=== PATIENT | female | born 1930 | race Caucasian/White ===

== ENCOUNTER 2018-10-30 14:12 | Observation (INO) | payer MEDICARE, OTHER ==
[~2018-10-30] VITALS: Ht 162.6 cm; Wt 67.3 kg
[~2018-10-30 14:12] MED LIST: AMBIEN CR12.5 MG; LASIX40 MG; LOPRESSOR50 MG PO; ZOLOFT25 MG
[2018-10-30] MEDS ORDERED: METHYLPREDNISOLONE SOD SUCC 125 MG/2ML VIAL IV STA (14:36)
[2018-10-30] MEDS ORDERED: SODIUM CHLORIDE 0.9% 500ML 500 ML IV STA (14:36)
[2018-10-30 14:55] LABS: BASOPHILS % 0.5 % (0.0-1.0); EOSINOPHILS # (AUTO) 0.1 (0.0-0.4); EOSINOPHILS % 1.3 % (0.0-6.0); HEMATOCRIT 40.6 % (34.2-44.1); HEMOGLOBIN 12.7 g/dL (12.0-16.0); LYMPHOCYTES % 12.6 % (18.0-39.1); MEAN CORPUSCULAR HEMOGLOBIN 32.5 pg (28-32); MEAN CORPUSCULAR HGB CONC 31.3 g/dL (31-35); MEAN CORPUSCULAR VOLUME 103.8 fL (81-99); MONOCYTES # (AUTO) 0.5 (0.2-0.8); MONOCYTES % 6.8 % (4.4-11.3); NEUTROPHILS # (AUTO) 6.2 (2.1-6.9); NEUTROPHILS % 78.4 % (38.7-80.0); PLATELET COUNT 266 x10e3/uL (140-360); RED BLOOD COUNT 3.91 x10e6/uL (3.6-5.1); RED CELL DISTRIBUTION WIDTH 12.5 % (11.7-14.4)
[2018-10-30 15:09] LABS: INR 0.92; PROTHROMBIN TIME 13.2 seconds (11.9-14.5)
[2018-10-30 15:10] LABS: PARTIAL THROMBOPLASTIN TIME 29.8 seconds (23.8-35.5)
[2018-10-30 15:19] LABS: ALANINE AMINOTRANSFERASE 9 IU/L (0-55); ALBUMIN/GLOBULIN RATIO 0.8 (0.8-2.0); ALKALINE PHOSPHATASE 63 IU/L (40-150); ANION GAP 12.2 mmol/L (8-16); BLOOD UREA NITROGEN 13 mg/dL (7-26); BUN/CREATININE RATIO 19 (6-25); CALCIUM 9.1 mg/dL (8.4-10.2); CARBON DIOXIDE 31 mmol/L (22-29); CHLORIDE 101 mmol/L (98-107); CREATINE KINASE 38 IU/L (29-168); CREATININE, SERUM 0.67 mg/dL (0.57-1.11); EST GLOMERULAR FILTRATION RATE > 60 ML/MIN (60-); GLUCOSE 124 mg/dL (74-118); MAGNESIUM 2.2 MG/DL (1.3-2.1); POTASSIUM 4.2 mmol/L (3.5-5.1); SODIUM 140 mmol/L (136-145)
[2018-10-30 15:31] LABS: BILIRUBIN,URINE NEGATIVE (NEGATIVE); CLARITY,URINE CLEAR (CLEAR); COLOR,URINE YELLOW (YELLOW); KETONES,URINE NEGATIVE (NEGATIVE); LEUKOCYTE ESTERASE ,URINE NEGATIVE (NEGATIVE); NITRITE,URINE NEGATIVE (NEGATIVE); PROTEIN,URINE DIPSTICK NEGATIVE (NEGATIVE); URINE UROBILINOGEN 0.2 mg/dL (0.2 - 1)
[2018-10-30 15:43] LABS: BACTERIA,URINE FEW /HPF; EPITHELIAL CELLS,URINE FEW /LPF; MUCUS,URINE FEW (RARE); RBC,URINE 0-5 /HPF (0-5); WBC,URINE (MAN) 0-5 /HPF (0-5)
[2018-10-30] MEDS ORDERED: ALBUTEROL/IPRATROPIUM 3 ML NEB NEB ONE (15:45)
[2018-10-30] MEDS ORDERED: DICYCLOMINE HCL 20 MG/2 ML VIAL IM ONE (16:45)
--- NOTE | 2018-10-30 17:31 | NUR ---
PT STATES SHE'S BREATHING BETTER POST BREATHING TREATMENT
--- NOTE | 2018-10-30 18:05 | Diagnostic Imaging Report ---
Examination: Single AP view of the chest. COMPARISON: None. INDICATION: Shortness of breath for 2 months IMPRESSION: 1. Lines and Tubes: None 2. Lungs are well-inflated. Linear opacities in the right lower lung likely reflect subsegmental atelectasis or scarring. No definite consolidation or effusion. 3. Cardiomediastinal silhouette is unremarkable. Mild central venous congestion. 4. No acute bony abnormalities. Signed by: Dr. Nacho Davies M.D. on 10/30/2018 6:02 PM
--- NOTE | 2018-10-30 18:27 | Diagnostic Imaging Report ---
Exam: Head CT without contrast Indication: Subacute diplopia Comparison: None Technique: Axial images were obtained from the skull base to the vertex. Coronal and sagittal images reconstructed from the axial data. Dose modulation, iterative reconstruction, and/or weight based adjustment of the mA/kV was utilized to reduce the radiation dose to as low as reasonably achievable. Intravenous contrast: None Findings: Suboptimal evaluation due to motion artifacts, limits evaluation particularly of the skull base and posterior fossa. Scalp/skull: No abnormalities. Extra-axial spaces: No masses. No fluid collections. Brain sulci: Mildly prominent. Ventricles: Mild compensatory dilatation. No hydrocephalus. Parenchyma: Nonspecific few, scattered supratentorial white matter hypodensity are likely related to small vessel ischemic changes. No masses, hemorrhage, acute or chronic cortical vascular insults. Sellar/suprasellar region: No abnormalities. Craniocervical junction: Patent foramen magnum. No Chiari one malformation. Moderate degenerative changes at the anterior atlantodental joint3. Incidental findings: Atherosclerotic calcifications in the carotid siphons . Nonspecific debris within the external auditory canals. Mucous retention cysts within the left maxillary sinus alveolar recess. 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 Impression: 1. No acute abnormalities. 2. Mild generalized cerebral volume loss and mild supratentorial white matter microvascular ischemic changes. Dictation delayed given IT issues. Specifically, exam performed at approximately 5:00 PM but images were not available for review intact until shortly after 6:00 PM. A preliminary report was provided by Dr. Ac on 10/30/2018 6:26 PM I have reviewed the images and agree with findings in the preliminary report. Signed by: Dr. Lalita Blank M.D. on 10/30/2018 7:49 PM
--- NOTE | 2018-10-30 18:28 | NUR ---
PT RESTING COMFORTABLY IN BED DENIES ANY COMPLAINTS AT THIS TIME
[2018-10-30] MEDS ORDERED: SODIUM CHLORIDE FLUSH 10 ML SYR INJ PRN (18:45)
[2018-10-30] MEDS ORDERED: ONDANSETRON HCL INJ 2MG/ML 2ML 2 MG/ML VIAL IV PRN (18:45)
[2018-10-30] MEDS: CEFTRIAXONE SOD 1 GM/NS 50 ML 50 ML IV SCH (19:00)
--- OUTSIDE RECORDS SUMMARY | 2018-10-30 19:37 | XMS REPORT ---
Author Author [facility] Address Unknown Phone Unavailable Care Team Providers Care Cafe Assistant Name Role Phone Elizabeth HARDIN Unavailable Unavailable Problems This patient has no known problems. Allergies, Adverse Reactions, Alerts This patient has no known allergies or adverse reactions. Medications This patient has no known medications. Results Test Description Test Time Test Comments Text Results Atomic Results Result Comments CHEST SINGLE (PORTABLE) 2018-10-30 18:01:00 [place] [id number] Patient Name: SOLA ELIZONDO MR #: [id number] : 1930 Age/Sex: 88/F Req #: [id number] Adm Physician: Ordered by: JOHN HARRISON RESIDENTIAL DOOR INSTALLER Report #: [id number] Location: ER Room/Bed: Procedure: [id number] DX/CHEST SINGLE (PORTABLE) Exam Date: 10/30/18 Exam Time: 1555 REPORT STATUS: Signed Examination: Single AP view of the chest. COMPAR BRAD: None. INDICATION: Shortness of breath for 2 months IMPRESSION: 1. Lines and Tubes: None 2. Lungs are well-inflated. Linear opacities in the right lower lung likely reflect subsegmental atelectasis or scarring. No definite consolidation or effusion. 3. Cardiomediastinal silhouette is unremarkable. Mild central venous congestion. 4. No acute bony abnormalities. Signed by: Dr. Fredis Davies M.D. on 10/30/2018 6:02 PM Dictated By: FREDIS DAVIES MD 01 Transcribed By: BEVERLEY on 1801 COPY TO: JOHN HARRISON NP
[2018-10-30] MEDS: ALBUTEROL/IPRATROPIUM 3 ML NEB NEB SCH ×2 (21:18→23:34)
[2018-10-30 21:39] VITALS: BP 174/76
--- NOTE | 2018-10-30 21:42 | NUR ---
PT ARRIVED BY STRETCHER TO ROOM 102. PT IS AAOX3, RR EVEN AND NON-LABORED, O2 BY NC AT 2L. NO S/SX OF DISTRESS NOTED. PT ASSISTED TO AMBULATE TO HOSPITAL BED WITH WALKER. ORIENTED PT TO HOSPITAL ROOM, CALL LIGHT, PHONE, BED CONTROLS AND LIGHTS. LEFT PT LAYING SEMI FOWLERS IN BED, BED IN LOW LOCKED POSITION, SIDE RAILS UPX2, CALL LIGHT AND PHONE WITHIN REACH. FAMILY AT BEDSIDE.
[2018-10-30 22:00] VITALS: BP 174/76
--- NOTE | 2018-10-30 22:00 | NUR ---
PT SON, CEE MIKHAIL, TO BRING [facility] PAPERWORK AND PT'S HOME MEDICATIONS FOR CLARIFICATION
--- NOTE | 2018-10-30 22:41 | NUR ---
PROVIDED PT WITH SANDWICH AT THIS TIME.
[2018-10-30] MEDS ORDERED: METOPROLOL TART50 MG PO (23:11)
[2018-10-30] MEDS ORDERED: XANAX0.25 MG PO (23:11)
[2018-10-30] MEDS ORDERED: [UNRECOGNIZED DRUG - REMARK] (23:11)
--- NOTE | 2018-10-30 23:35 | NUR ---
BLOOD DRAWN AND DELIVERED TO LAB FOR CARDIAC ENZYMES.
[2018-10-31] VITALS (8 sets, daily range): BP systolic 119–152; BP diastolic 58–70
[2018-10-31] MEDS: ALBUTEROL/IPRATROPIUM 3 ML NEB NEB SCH ×6 (03:40→22:36)
[2018-10-31 04:02] LABS: CREATINE KINASE MB 1.4 ng/mL (0-5.0)
[2018-10-31 05:50] LABS: BASOPHILS % 0.2 % (0.0-1.0); HEMATOCRIT 36.6 % (34.2-44.1); HEMOGLOBIN 11.7 g/dL (12.0-16.0); LYMPHOCYTES # (AUTO) 0.2 (1.0-3.2); LYMPHOCYTES % 4.4 % (18.0-39.1); MEAN CORPUSCULAR HEMOGLOBIN 32.7 pg (28-32); MEAN CORPUSCULAR VOLUME 102.2 fL (81-99); MONOCYTES # (AUTO) 0.1 (0.2-0.8); NEUTROPHILS # (AUTO) 5.1 (2.1-6.9); PLATELET COUNT 242 x10e3/uL (140-360); RED BLOOD COUNT 3.58 x10e6/uL (3.6-5.1); RED CELL DISTRIBUTION WIDTH 12.4 % (11.7-14.4)
[2018-10-31] MEDS: CEFTRIAXONE SOD 1 GM/NS 50 ML 50 ML IV SCH ×2 (05:54→18:35)
[2018-10-31 06:11] LABS: ANION GAP 13.1 mmol/L (8-16); BLOOD UREA NITROGEN 14 mg/dL (7-26); BUN/CREATININE RATIO 22 (6-25); CALCIUM 9.2 mg/dL (8.4-10.2); CARBON DIOXIDE 30 mmol/L (22-29); CHLORIDE 103 mmol/L (98-107); CREATININE, SERUM 0.64 mg/dL (0.57-1.11); EST GLOMERULAR FILTRATION RATE > 60 ML/MIN (60-); GLUCOSE 204 mg/dL (74-118); POTASSIUM 4.1 mmol/L (3.5-5.1); SODIUM 142 mmol/L (136-145)
[2018-10-31 06:47] LABS: CREATINE KINASE MB 1.2 ng/mL (0-5.0)
[2018-10-31 08:06] LABS: LYMPHOCYTES % (MANUAL) 4 % (19-48); NEUTROPHILS % (MANUAL) 96 % (40-74); PLATELET ESTIMATE ADEQUATE; PLATELET MORPHOLOGY COMMENT NORMAL; RBC MORPHOLOGY COMMENT ABNORMAL
--- NOTE | 2018-10-31 12:02 | NUR ---
JOSHUA INTO SEE PT, DISCUSSED POC
[2018-10-31] MEDS ORDERED: LASIX20 MG PO (12:18)
[2018-10-31] MEDS ORDERED: POTASSIUM CHLO10 ME1 PO (12:18)
--- NOTE | 2018-10-31 12:35 | NUR ---
MD STOKES INTO SEE PT, DISCUSSED POC, PT WHEELED OFF UNIT VIA BED FOR CT OF CHEST, NO CHANGE IN CONDITION
[2018-10-31] MEDS ORDERED: ALPRAZOLAM 0.25 MG TAB PO PRN (12:45)
--- NOTE | 2018-10-31 13:14 | NUR ---
SOCIAL WORK INITIAL ASSESSMENT Tracer Clerk to bedside to discuss plan of care with patient/family. CM/SW role and care transitions discussed. Anticipated discharge plan discussed along with duration of care. CM/SW discussed patients right to make decisions in care. CM/SW work hours given. Patient lives: IN OWN HOUSE BY SELF Admit/Transfer: VIA ED FROM HOME POA/Emergency contact: LALITA MCINTOSH [phone] Current/Previous Home Health: NONE PCP/Follow-up Care: JUNIOR Current/Previous DME: [facility]AR Other Services: NONE Employment Status: RETIRED Areas of Concerns: NONE Referral Needs: NONE Education Needs: NONE IMM/MONTIEL given and signed (if applicable): MONTIEL Goal for discharge: RETURN HOME INDEPENDENTLY CM/SW left business card at the bedside with contact information. Name and number was also written on the patients whiteboard. Patient verbalized understanding of discussion. CM will follow-up with ongoing discharge and transition of care needs.
[2018-10-31 14:19] LABS: CREATINE KINASE MB 1.6 ng/mL (0-5.0)
--- NOTE | 2018-10-31 14:33 | Consultation ---
DATE OF CONSULTATION PULMONARY CONSULTATION REASON FOR CONSULTATION: Shortness of breath and wheezing. HPI: Mr. Salazar is an 88-year-old female. She is a regular patient of Dr. No. Patient reports that she is having shortness of breath for last few years off and on with wheezing. She was prescribed Advair inhaler, but she was unable to afford it. She uses nebulizer, however, somehow, she was unable to fill the prescription and she is not using that at all. Currently she is on nebulizer. She reports that she feels better with nebulizer treatment. She is a lifelong nonsmoker. Does not drink. She is a , lives by herself and now at some point she is not able to perform daily activities because of her wheezing and shortness of breath. REVIEW OF SYSTEMS GENERAL: Denies any fever or chills. HEAD: Denies any head trauma. ENT: Denies any earache. CVS: Denies any chest pain. RESPIRATORY: Wheezing, shortness of breath. PAST MEDICAL HISTORY: Patient has history of hypertension. PAST SURGICAL HISTORY: Aortic dissection repair in 2010, cholecystectomy, knee replacement, and back surgery. PHYSICAL EXAMINATION VITALS: Temperature 97.2, pulse of 84, blood pressure 128/58, respiratory rate of 18. O2 sat 98% on 2 liters. HEENT: Head atraumatic, normocephalic. NECK: Supple. CHEST: Markedly reduced air entry bilaterally. HEART: S1 and S2 audible. ABDOMEN: Soft, nontender and nondistended. EXTREMITIES: No clubbing, cyanosis or edema. NEUROLOGIC: Awake and alert. LABORATORY DATA: White count of 5.4, hemoglobin 11.7, platelets 242. Chemistry: Sodium 142, potassium 4.1, chloride 103. BUN 14, creatinine 0.64. INR is 0.92. IMAGING STUDIES: Chest x-ray, I have reviewed the images. Lungs are well inflated. I do not see any indefinite abnormality on the chest x-ray. ASSESSMENT: Ms. Salazar is an 88-year-old female who has wheezing, cough, shortness of breath, a lifelong nonsmoker. Chest x-ray not suggestive of any pneumonia. Patient has kyphosis. I think she probably has underlying asthma as she has a reported response to inhalers in the past and also responding to inhalers now. It is possible that asthma is getting worse, is causing more problem because she has kyphosis which gives a mechanical restriction to her lung. PLAN 1. I will do a CT chest without contrast. Add Pulmicort nebs. Continue the patient on DuoNeb. I will also had IV Solu-Medrol low-dose. 2. We will order bedside PFT as well. 3. Discuss with patient's daughter at bedside in detail. Job#: [id number] SAPNA
[2018-10-31] MEDS: METHYLPREDNISOLONE SOD SUCC 40 MG/ML VIAL 1ML IV SCH ×2 (14:58→21:28)
--- NOTE | 2018-10-31 16:46 | Diagnostic Imaging Report ---
CT CHEST WITHOUT CONTRAST HISTORY: Shortness of breath COMPARISON: Chest radiograph October 30, 2018. CTA's of the chest December 21, 2010 and December 13, 2010. TECHNIQUE: CT scan of the chest WITHOUT intravenous contrast, using standard protocol. The chest was scanned utilizing a multidetector helical scanner from the apex to the level of the adrenal glands. Coronal and sagittal reformats are provided. IV CONTRAST: None, which limits evaluation of the vascular structures, mediastinum and soft tissues. RADIATION DOSE: Total DLP: 451.4 mGy*cm Dose modulation, iterative reconstruction, and/or weight based adjustment of the mA/kV was utilized to reduce the radiation dose to as low as reasonably achievable. COMPLICATIONS: None FINDINGS: Lines/tubes: None. Lungs and Airways: No consolidative pneumonia. Bilateral mild atelectasis versus scarring. A 1.4 cm thin-walled right lower lobe cyst. Pleura: No effusion or pneumothorax. Heart and mediastinum: The thyroid gland is normal. The heart and pericardium are within normal limits. Abdomen: Limited nonenhanced views of the upper abdomen. Lymph nodes: No pathologically enlarged lymph node. Vessels: Interval postsurgical changes, most notably the aortic root/ascending aorta. Diffuse scattered atherosclerotic vascular calcifications. There is persistent asymmetric wall thickening versus thrombus at the aortic arch and descending aorta, but it appears less prominent versus the comparisons. Bones: Diffusely decreased mineralization of the osseous structures limits bone detail. Multiple median sternotomy wires. The focal degenerative changes. Soft tissues: Otherwise, unremarkable. IMPRESSION: 1. No pneumonia or pulmonary edema. 2. Postsurgical changes of the thoracic aorta with slightly decreased asymmetric thickening versus thrombus involving the arch and descending aorta. 3. Diffuse osseous demineralization. Signed by: Dr. Carloz Lazaro D.O., M.M.M. on 10/31/2018 4:43 PM
--- NOTE | 2018-10-31 17:28 | NUR ---
TELEPHONED MD HUERTA'S OFFICE PER PT REQUEST TO RESTART EYE DROPS THAT PT "FORGOT TO ADD TO LIST", PT EYES ARE RED AND "ACHY", PT STATES SHE TAKES VISINE AND SYSTANE EYE DROPS NEEDED AT HOME, AWAITING CALL BACK
[2018-10-31] MEDS ORDERED: SODIUM CHLORIDE 0.9% 250ML 250 ML ONE (18:31)
--- NOTE | 2018-10-31 19:01 | NUR ---
WALKING ROUNDS PERFORMED, RECEIVED PT LAYING SEMI FOWLERS IN BED, AAOX3, RR EVEN AND NON-LABORED, O2 BY NC AT 2L. NO S/SX OF DISTRESS NOTED. LEFT PT LAYING SEMI FOWLERS IN BED, BED IN LOW LOCKED POSITION, SIDE RAILS UPX2, CALL LIGHT AND PHONE WITHIN REACH. FAMILY AT BEDSIDE.
[2018-10-31] MEDS ORDERED: VISINE TEARS DR15 ML OU (19:12)
[2018-10-31] MEDS ORDERED: SYSTANE GEL EYE10 ML OU (19:12)
[2018-10-31] MEDS: BUDESONIDE 0.5MG/2 ML NEB INH SCH (20:00)
[2018-10-31] MEDS: METOPROLOL TARTRATE 50 MG TAB PO SCH (21:28)
[2018-10-31] MEDS: TETRAHYDROZOLINE HCL(OPTH) 30 ML BOTTLE OP PRN (21:28)
[2018-11-01] VITALS (9 sets, daily range): BP systolic 139–181; BP diastolic 73–93
[2018-11-01] MEDS: ALBUTEROL/IPRATROPIUM 3 ML NEB NEB SCH ×7 (03:00→23:12)
[2018-11-01] MEDS: CEFTRIAXONE SOD 1 GM/NS 50 ML 50 ML IV SCH ×2 (05:48→17:56)
[2018-11-01] MEDS: METHYLPREDNISOLONE SOD SUCC 40 MG/ML VIAL 1ML IV SCH ×2 (05:48→20:42)
[2018-11-01] MEDS: BUDESONIDE 0.5MG/2 ML NEB INH SCH (07:46)
[2018-11-01] MEDS: FUROSEMIDE 20 MG TAB PO SCH (09:05)
[2018-11-01] MEDS: METOPROLOL TARTRATE 50 MG TAB PO SCH ×2 (09:05→20:42)
[2018-11-01] MEDS: POTASSIUM CHLORIDE 10MEQ EA PO SCH (09:05)
--- NOTE | 2018-11-01 12:09 | NUR ---
JOSHUA INTO SEE PT, DISCUSSED POC
[2018-11-01] MEDS ORDERED: ALBUTEROL SULFATE HFA 8GM INHALATION AEROSOL INH PRN (12:30)
[2018-11-01] MEDS ORDERED: ACETAMINOPHEN 325 MG TAB ONE (12:56)
[2018-11-01] MEDS: ACETAMINOPHEN 325 MG TAB PO PRN (12:59)
--- NOTE | 2018-11-01 13:20 | NUR ---
MD STOKES INTO SEE PT, DISCUSSED POC
--- NOTE | 2018-11-01 16:44 | History and Physical ---
This is for Dr. Rodriguez. Ms. Salazar is a pleasant but complex 88-year-old woman who was sent from Dr. No's office on the afternoon of the with a complaint of shortness of breath and low oxygen saturation. HISTORY OF PRESENT ILLNESS: The patient reports she visited with Dr. No for dyspnea and checked saturation and found to be very low, and she was directed to the emergency room. PAST MEDICAL HISTORY: Significant also for lung disease and dyspnea. She has hypertension. PAST SURGICAL HISTORY: Multiple surgical procedures. She had repair of aortic dissection in 2010. She had cholecystectomy in 2010. She had previous total knee replacement and lumbar spine surgery. Cholecystectomy was in 2010. CURRENT HOME MEDICATIONS: Include Xanax 0.25 mg, furosemide 20 mg daily, metoprolol tartrate 50 mg daily in the morning and 75 mg in the evening, potassium 10 mEq daily, and eye drops. PERSONAL AND SOCIAL HISTORY: She does not smoke. FAMILY HISTORY: Positive for diabetes. PHYSICAL EXAMINATION GENERAL: At this time shows elderly white woman who is alert, has a patch on the right eye. VITAL SIGNS: Blood pressure 180/90, pulse 80 and regular. 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 Pupils equal and responsive. NECK: No jugular venous distention. THORAX: Has healed midline sternotomy and a right subclavian incision healed. CARDIAC: Heart sounds S1, S2 are equal but there is a 2/6 systolic murmur. LUNGS: Show distant breath sounds. ABDOMEN: Protuberant. EXTREMITIES: No cyanosis, clubbing or edema. CURRENT LABORATORY STUDIES: Show white count 5.4, hemoglobin 11.7. BUN 14, creatinine 0.6. Serum bicarb elevated at 30. Coags are normal. Troponins are normal x3. BNP is 275. Glucose 124. Chest x-ray suggests linear opacities in the right lung, likely atelectasis or scarring. Chest x-ray report fails to mention the sternotomy wires and the right subclavian surgical clips. ASSESSMENT 1. Exacerbation of chronic obstructive pulmonary disease. 2. Hypertension. 3. Hypoxia. 4. Aortic murmur. 5. Previous repair of dissection of the aorta. PLAN: We will await pulmonary consultation and patient is about to get CAT scan of the chest. We will request echocardiogram as well. Further management based on clinical course. Job#: [id number] MYKE cc:DR. GTZ
[2018-11-01] MEDS ORDERED: METHYLPREDNISOLONE SOD SUCC 40 MG/ML VIAL 1ML IV SCH (17:00)
[2018-11-01] MEDS: LOSARTAN POTASSIUM 25 MG TAB PO SCH (17:30)
--- NOTE | 2018-11-01 19:07 | NUR ---
WALKING ROUNDS PERFORMED, RECEIVED PT LAYING SEMI FOWLERS IN BED, AAOX3, RR EVEN AND NON-LABORED, ON RA. NO S/SX OF DISTRESS NOTED. LEFT PT LAYING SEMI FOWLERS IN BED, BED IN LOW LOCKED POSITION, SIDE RAILS UPX2, CALL LIGHT AND PHONE WITHIN REACH. FAMILY AT BEDSIDE.
[2018-11-01] MEDS: BUDESONIDE/FORMOTEROL 160/4.5MCG INHALER INH SCH (19:37)
[2018-11-01] MEDS: TETRAHYDROZOLINE HCL(OPTH) 30 ML BOTTLE OP PRN (20:42)
--- NOTE | 2018-11-01 22:00 | NUR ---
APPLIED NOAM ALTERNATING PRESSURE PUMP TO PT'S BED.
[2018-11-02] VITALS (8 sets, daily range): BP systolic 116–155; BP diastolic 57–86
[2018-11-02] MEDS: ALBUTEROL/IPRATROPIUM 3 ML NEB NEB SCH ×6 (03:10→23:19)
[2018-11-02] MEDS: ACETAMINOPHEN 325 MG TAB PO PRN ×2 (03:55→23:22)
[2018-11-02] MEDS: CEFTRIAXONE SOD 1 GM/NS 50 ML 50 ML IV SCH ×2 (05:45→17:50)
--- NOTE | 2018-11-02 07:09 | NUR ---
Received patient and walking rounds complete. Patient resting in bed, no signs of distress at this time. Bed in lowest position, wheels locked, side rails up x2, call light in reach. Will continue to monitor.
[2018-11-02] MEDS: BUDESONIDE/FORMOTEROL 160/4.5MCG INHALER INH SCH ×2 (07:30→20:12)
[2018-11-02] MEDS: METHYLPREDNISOLONE SOD SUCC 40 MG/ML VIAL 1ML IV SCH ×2 (08:09→21:28)
[2018-11-02] MEDS: METOPROLOL TARTRATE 50 MG TAB PO SCH ×2 (08:09→21:28)
[2018-11-02] MEDS: FUROSEMIDE 20 MG TAB PO SCH (08:09)
[2018-11-02] MEDS: POTASSIUM CHLORIDE 10MEQ EA PO SCH (08:09)
[2018-11-02] MEDS: LOSARTAN POTASSIUM 25 MG TAB PO SCH (08:09)
--- NOTE | 2018-11-02 11:35 | NUR ---
Patient A/O X3, even respirations unlabored on room air. Bowel sounds present, had bowel movement this morning. Right AC 20 gauge IV saline locked. Ambulates with cane to the bathroom. Telemetry #12 running SR. No complaints of pain at this time. No signs of distress. Bed in lowest position, wheels locked, side rails up x2, call light in reach. Will continue to monitor.
--- NOTE | 2018-11-02 15:34 | NUR ---
CM SPOKE TO PATIENT AT BEDSIDE WITH PATIENT SISTER IN LAW REGARDING HOME HEALTH SERVICES. PATIENT STATES SHE REFUSES HOME HEALTH SERVICES. PATIENT STATES SHE DOES NOT WANT PHYSICAL THERAPY SERVICES EVEN THOUGH SHE STATES SHE IS SHAKY WITH CANE. PATIENT STATES SHE WANTS SOMEONE TO HELP HER AROUND THE HOUSE. PATIENT GIVEN SENIOR RESOURCE GUIDE WELL NON- MEDICAL AND MEDICAL PROVIDER SERVICE RESOURCES. CM GAVE PATIENT SISTER IN LAW SAME RESOURCES FOR HOME USE. PATIENT SON TOLD BY PATIENT SISTER IN LAW THAT RESOURCES ARE AT BEDSIDE WELL. CM TO FOLLOW UP WITH SON TOMORROW MORNING.
--- NOTE | 2018-11-02 15:56 | NUR ---
PFT COMPLETED BEDSIDE
[2018-11-03] VITALS: BP 150/68
[2018-11-03] MEDS: ALBUTEROL/IPRATROPIUM 3 ML NEB NEB SCH ×2 (03:00→07:00)
[2018-11-03 04:00] VITALS: BP 132/65
[2018-11-03] MEDS: CEFTRIAXONE SOD 1 GM/NS 50 ML 50 ML IV SCH (06:22)
[2018-11-03] MEDS: BUDESONIDE/FORMOTEROL 160/4.5MCG INHALER INH SCH (07:00)
--- NOTE | 2018-11-03 07:00 | NUR ---
Received patient and walking rounds complete. Patient awake resting in bed, no signs of distress at this time. Bed in lowest position, wheels locked, side rails up x2, call light in reach. Will continue to monitor.
[2018-11-03 07:35] VITALS: BP 147/67
[2018-11-03] MEDS: POTASSIUM CHLORIDE 10MEQ EA PO SCH (07:48)
[2018-11-03] MEDS: LOSARTAN POTASSIUM 25 MG TAB PO SCH (07:48)
[2018-11-03] MEDS: METHYLPREDNISOLONE SOD SUCC 40 MG/ML VIAL 1ML IV SCH (07:48)
[2018-11-03] MEDS: FUROSEMIDE 20 MG TAB PO SCH (07:49)
[2018-11-03] MEDS: METOPROLOL TARTRATE 50 MG TAB PO SCH (07:49)
[2018-11-03] MEDS ORDERED: PREDNISONE 10 MG TAB PO SCH (09:00)
--- NOTE | 2018-11-03 09:00 | NUR ---
CM SPOKE TO PATIENT AT BEDSIDE REGARDING DME- ROLLING WALKER ORDER. PATIENT STATES SHE WOULD LIKE ROLLING WALKER. CM GAVE ROLLING WALKER TO PATIENT FROM HOSPITAL- PACU AREA. PAPERWORK SIGNED BY PATIENT AND MD AND PLACED IN PACU. PATIENT WALKER ADJUSTED ACCORDING TO WALKER USED IN HOSPITAL. PATIENT SET UP TO DISCHARGE HOME WITH NO FURTHER QUESTIONS OR NEEDS. PATIENT SON ON THE WAY TO FRUIT DISTRIBUTOR PATIENT PER RN.
[2018-11-03] MEDS ORDERED: TESSALON PERLE100 MG PO (09:28)
[2018-11-03] MEDS ORDERED: ZOFRAN8 MG SL (09:30)
--- NOTE | 2018-11-03 09:50 | NUR ---
Removed patients IV. Catheter tip intact and pressure dressing applied.
[2018-11-03 09:57] VITALS: BP 147/67
--- NOTE | 2018-11-03 10:18 | NUR ---
Patient discharged from facility. Patient gathered all personal belongings and received prescriptions, follow up information, and discharge instructions. Left unit in wheelchair and went home via private auto with son. No signs of distress during discharge.
--- NOTE | 2018-11-04 01:27 | Discharge Summary ---
PCP: Dr. Miguel No. FINAL DIAGNOSES 1. Acute exacerbation of chronic obstructive pulmonary disease. 2. Baseline chronic hypoxia secondary to chronic obstructive pulmonary disease. 3. Obstructive lung disease. SUMMARY: Patient is a pleasant 88-year-old female who lives at home with her son, came to the hospital because of acute exacerbation of COPD. She did have pulmonary function test consistent with obstructive pattern. Patient was otherwise stable. She is comfortable after the treatment. She was seen by Dr. Asa Wiggins/Dr. Gunner Hussein and along with that coverage physician, Dr. Benedicto Bush. Patient is stable. Arrangement was made. Home health arranged. Nebulizer medication as well. Patient was stable, discharged home. Follow up with Dr. Miguel No, PCP, in approximately 1 week. Please review the MAR on discharge. Job#: [id number] CF
== END 2018-11-03 10:18 | disposition home or self-care (01) ==
LOC: ER 14:12 → ERHOLD 18:45 → MED/SURG 21:40
PROVIDERS: ADMIT Internal Medicine; ATTEND Internal Medicine
DX: J44.1 Chronic obstructive pulmonary disease with (acute) exacerbation (principal); R09.02 Hypoxemia; Z82.49 Family history of ischemic heart disease and other diseases of the circulatory system; I10 Essential (primary) hypertension; I35.8 Other nonrheumatic aortic valve disorders; M40.209 Unspecified kyphosis, site unspecified; R53.81 Other malaise; R73.9 Hyperglycemia, unspecified; T38.0X5A Adverse effect of glucocorticoids and synthetic analogues, initial encounter; H53.2 Diplopia
CPT/HCPCS: 36415 ×2; 70450; 71045; 71250; 80048; 80053; 81001; 82550 ×2; 82553 ×2; 83735; 83880; 84484 ×2; 85025 ×2; 85610; 85730; 87400; 93005 ×2; 93306; 94060; 94640 ×10; 97116; 97161; 99284; G0378 ×5; J0696 ×5; J2920 ×4; J2930; J7040; J7050; 94664

== ENCOUNTER 2020-09-18 08:07 | Emergency (ER) | payer MEDICARE ==
[~2020-09-18] VITALS: Ht 162.6 cm; Wt 63.5 kg
[~2020-09-18 08:07] MED LIST changes: +LASIX20 MG PO; +METOPROLOL TART50 MG PO; +POTASSIUM CHLO10 ME1 PO; +SYSTANE GEL EYE10 ML OU; +TESSALON PERLE100 MG PO; +VISINE TEARS DR15 ML OU; +XANAX0.25 MG PO; +ZOFRAN8 MG SL; +[UNRECOGNIZED DRUG - REMARK]
[2020-09-18] MEDS ORDERED: SODIUM CHLORIDE 0.9% 1000ML 1,000 ML IV ONE (08:11)
[2020-09-18] MEDS ORDERED: GLUCAGON FOR INJ 1 MG VIAL IV ONE (08:15)
[2020-09-18] MEDS ORDERED: MORPHINE SULFATE 2 MG/ML SYR 1ML ONE (08:35)
[2020-09-18] MEDS ORDERED: ONDANSETRON HCL INJ 2MG/ML 2ML 2 MG/ML VIAL IV ONE (08:39)
[2020-09-18] MEDS ORDERED: MORPHINE SULFATE INJ 4 MG/ML INJ 1ML IV STA ×2 (08:39→10:22)
[2020-09-18 08:43] LABS: BASOPHILS % 0.5 % (0.0-1.0); EOSINOPHILS % 0.4 % (0.0-6.0); HEMATOCRIT 42.5 % (34.2-44.1); HEMOGLOBIN 13.8 g/dL (12.0-16.0); LYMPHOCYTES # (AUTO) 0.9 (1.0-3.2); LYMPHOCYTES % 11.2 % (18.0-39.1); MEAN CORPUSCULAR HEMOGLOBIN 34.1 pg (28-32); MEAN CORPUSCULAR HGB CONC 32.5 g/dL (31-35); MEAN CORPUSCULAR VOLUME 104.9 fL (81-99); MONOCYTES # (AUTO) 0.5 (0.2-0.8); MONOCYTES % 5.9 % (4.4-11.3); NEUTROPHILS # (AUTO) 6.5 (2.1-6.9); NEUTROPHILS % 81.5 % (38.7-80.0); PLATELET COUNT 166 x10e3/uL (140-360); RED BLOOD COUNT 4.05 x10e6/uL (3.6-5.1); RED CELL DISTRIBUTION WIDTH 12.5 % (11.7-14.4)
[2020-09-18] MEDS ORDERED: MORPHINE SULFATE INJ 4 MG/ML INJ 1ML IV ONE (08:45)
[2020-09-18 08:59] LABS: INR 0.94; PROTHROMBIN TIME 13.1 seconds (11.9-14.5)
[2020-09-18 09:06] LABS: ALANINE AMINOTRANSFERASE 12 IU/L (0-55); ALBUMIN/GLOBULIN RATIO 1.6 (0.8-2.0); ALKALINE PHOSPHATASE 39 IU/L (40-150); BLOOD UREA NITROGEN 15 mg/dL (7-26); BUN/CREATININE RATIO 19 (6-25); CALCIUM 8.9 mg/dL (8.4-10.2); CARBON DIOXIDE 28 mmol/L (22-29); CHLORIDE 104 mmol/L (98-107); CREATINE KINASE 51 IU/L (29-168); CREATININE, SERUM 0.81 mg/dL (0.57-1.11); EST GLOMERULAR FILTRATION RATE > 60 ML/MIN (60-); GLUCOSE 126 mg/dL (74-118); SODIUM 140 mmol/L (136-145)
[2020-09-18] MEDS ORDERED: IOPAMIDOL 370 MG/ML 200 ML INFUS..BTL INJ ONE (09:59)
[2020-09-18] MEDS ORDERED: SODIUM CHLORIDE 0.9% 50ML 50 ML ONE (09:59)
[2020-09-18 11:55] VITALS: BP 185/85
[2020-09-18] MEDS ORDERED: NITROGLYCERIN 2% OINT 1 GM PKT TOP ONE (12:00)
== END 2020-09-18 13:11 | disposition other institution (70) ==
LOC: ER 08:11
DX: R00.1 Bradycardia, unspecified (principal); I71.01 Dissection of thoracic aorta; Z20.828 Contact with and (suspected) exposure to other viral communicable diseases; I10 Essential (primary) hypertension; H91.90 Unspecified hearing loss, unspecified ear; R94.31 Abnormal electrocardiogram [ECG] [EKG]
CPT/HCPCS: 36415; 71045; 71260; 80053; 82550; 82553; 83880; 84484; 85025; 85610; 93005; 99284; J1610; J2270 ×2; J2405; J7030; Q9967; U0002